=== PATIENT | female | born 1995 | race Caucasian/White ===

== ENCOUNTER 2019-02-02 13:00 | Emergency (ER) | payer MEDICAID ==
[~2019-02-02] VITALS: Ht 167.6 cm; Wt 68.3 kg
[2019-02-02 13:15] VITALS: BP 114/96
--- NOTE | 2019-02-02 13:23 | NUR ---
PT HERE FOR SORE THROAT. BELIEVES IT IS STREP THROAT. STATES ROOMMATES HAVE SAME PROBLEM GOING ON. PRESENT SINCE TUESDAY. SITTING ON GURNEY. KNIGHT.
[2019-02-02] MEDS ORDERED: DEXAMETHASONE 4 MG TABLET ONE (13:50)
[2019-02-02] MEDS ORDERED: DEXAMETHASONE 4 MG TABLET PO ONE (14:00)
== END 2019-02-02 13:57 | disposition home or self-care (01) ==
LOC: ED 13:50
DX: J02.0 Streptococcal pharyngitis (principal); F17.200 Nicotine dependence, unspecified, uncomplicated; J45.909 Unspecified asthma, uncomplicated
CPT/HCPCS: 99283

== ENCOUNTER 2019-02-16 13:01 | Emergency (ER) | payer MEDICAID ==
[~2019-02-16] VITALS: Ht 167.6 cm; Wt 68.7 kg
[2019-02-16 13:25] VITALS: BP 121/87
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
[2019-02-16] MEDS ORDERED: CEFTRIAXONE 250 MG ONE (13:40)
[2019-02-16] MEDS ORDERED: AZITHROMYCIN 250 MG TABLET ONE (13:41)
[2019-02-16] MEDS ORDERED: CEFTRIAXONE 250 MG IM ONE (14:00)
[2019-02-16] MEDS ORDERED: AZITHROMYCIN 500 MG TABLET PO ONE (14:00)
== END 2019-02-16 14:08 | disposition home or self-care (01) ==
LOC: ED 13:37
DX: A56.01 Chlamydial cystitis and urethritis (principal); J45.909 Unspecified asthma, uncomplicated
CPT/HCPCS: 96372; 99283; J0696

== ENCOUNTER 2019-03-12 12:13 | Emergency (ER) | payer MEDICAID ==
[~2019-03-12] VITALS: Ht 167.6 cm; Wt 67.9 kg
[2019-03-12 13:25] VITALS: BP 129/75
[2019-03-12] MEDS ORDERED: DIPH,PERTUSS(ACELL),TET VAC/PF 0.5 ML IM-VACC ONE ×2 (13:30→14:03)
[2019-03-12] MEDS ORDERED: SILVER SULF. CRM 1% , 25GM TP ONE ×2 (13:30→14:00)
[2019-03-12] MEDS ORDERED: SILVER SULF. CRM 1% , 25GM ONE (13:44)
--- NOTE | 2019-03-12 13:56 | NUR ---
EMT AT BEDSIDE TO DRESS WOUND.
[2019-03-12] MEDS ORDERED: HYDROcodone/APAP 5/325 TABLET PO ONE (14:00)
[2019-03-12] MEDS ORDERED: HYDROcodone/APAP 5/325 TABLET ONE (14:03)
[2019-03-12] MEDS ORDERED: KETOROLAC 30 MG/1 ML ONE (14:12)
--- NOTE | 2019-03-12 14:16 | NUR ---
PT MEDICATED PER ORDERS. PT REFUSED PO NORCO, ORDER RECEIVED FOR IM TORADOL. PA AWARE.
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
--- NOTE | 2019-03-12 14:26 | NUR ---
Patient/Caregiver given discharge instructions and they have confirmed that they understand the instructions. Patient ambulatory with steady gait.
[2019-03-12] MEDS ORDERED: KETOROLAC 30 MG/1 ML IM ONE (14:30)
== END 2019-03-12 14:28 | disposition home or self-care (01) ==
LOC: ED 14:15
DX: T23.131A Burn of first degree of multiple right fingers (nail), not including thumb, initial encounter (principal); F17.200 Nicotine dependence, unspecified, uncomplicated; X10.2XXA Contact with fats and cooking oils, initial encounter; Y93.89 Activity, other specified; Y92.009 Unspecified place in unspecified non-institutional (private) residence as the place of occurrence of the external cause; Y99.8 Other external cause status
CPT/HCPCS: 16000; 90471; 90715; 96372; 99284; J1885

== ENCOUNTER 2020-06-03 18:57 | Emergency (ER) | payer MEDICAID ==
[~2020-06-03] VITALS: Ht 165.1 cm; Wt 73.8 kg
--- NOTE | 2020-06-03 19:12 | NUR ---
PATIENT AMBULATED TO ER ROOM WITH STEADY GAIT. C/O SORE THROAT AND "IT FEELS LIKE STREP THROAT WHICH I GET EVERY 3 MONTHS". CLEAR SPEECH. NO DROOLING NOTED. SWOLLEN REDENNED TONSILLS AND BACK OF OROPHARYNX. NO WHITE PATCHES NOTED AT THIS TIME. PATIENT REPORTS JUST BEING DX WITH [facility] AND SHE FINISHED HER CEPHELEXIN LAST NIGHT FOR THAT AND STATES IT HELPED HER THROAT FEEL BETTER WELL. SLIGHTLY HOARSE VOICE BUT PATIENT IS A 1/2 PACK SMOKER WELL. ABLE TO HANDLE OWN SECRECTIONS/SALIVA AT THIS TIME. CALL YODER IN REACH. SAFETY MAINTAINED. WILL CONTINUE TO MONITOR.
[2020-06-03 19:40] VITALS: BP 125/88
--- NOTE | 2020-06-03 19:40 | NUR ---
DISCHARGE INSTRUCTIONS REVIEWED WITH PATIENT. NO FURTHER QUESTIONS. PRESCRIPTION HANDED DIRECTLY TO PATIENT. ALL BELONGINGS WITH PATIENT ON DC. NO IV PLACED DURING THIS ER VISIT. STEADY GAIT TO LOBJONATHAN
== END 2020-06-03 19:53 | disposition home or self-care (01) ==
LOC: ED 19:30
DX: J02.9 Acute pharyngitis, unspecified (principal); J45.909 Unspecified asthma, uncomplicated; R09.81 Nasal congestion
CPT/HCPCS: 99283